=== PATIENT | male | born 1980 | race Hispanic/Latino ===

== ENCOUNTER 2016-09-07 23:05 | Inpatient (IN) | payer OTHER ==
[~2016-09-07] VITALS: Ht 170.2 cm; Wt 87.3 kg
--- NOTE | 2016-09-07 23:18 | NUR ---
PT TO ED S/P SI ATTEMPT AT 1330 TODAY. PT TOOK 10 MUSCLE RELAXERS, UNABLE TO IDENTIFY MEDICATION NAME, WITH ALCOHOL. PT NOW DENIES SI/HI. REPORTS LIGHTHEADNESS/DIZZINESS AND "HARD TO MOVE." PT CALM/COOPERATIVE IN TRIAGE.
--- NOTE | 2016-09-07 23:22 | NUR ---
PT TO BAUDILIO Dawson FROM TRIAGE SECURITY CALLED FOR MIGDALIA SHARMA EVALUATING AT PRESENT
--- NOTE | 2016-09-07 23:29 | ED AMS/SEIZURE/WEAK/DIZZY ---
See Addendum History of Present Illness General Chief Complaint: ETOH/Drug Related Complaint Stated Complaint: TOOK 10 MUSCLE RELAXERS "I DONT FEEL WELL" Source: patient Exam Limitations: no limitations Vital Signs & Intake/Output Vital Signs & Intake/Output Vital Signs Date Time Temp Pulse Resp B/P B/P Pulse O2 O2 Flow FiO2 Mean Ox Delivery Rate 09/08 2136 95.9 85 16 125/64 98 Room Air 09/08 1900 98.2 84 16 110/72 94 Room Air 09/08 1509 97.6 93 18 109/55 97 Room Air 09/08 0654 97.1 82 16 110/57 98 Room Air Room Air Allergies Coded Allergies: No Known Allergies (09/07/16) Reconcile Medications Multivitamin (Multivitamins) 1 EACH CAPSULE 1 CAP PO D SUPPLEMENT (Reported) Triage Note: PT TO ED S/P SI ATTEMPT AT 1330 TODAY. PT TOOK 10 MUSCLE RELAXERS, UNABLE TO IDENTIFY MEDICATION NAME, WITH ALCOHOL. PT NOW DENIES SI/HI. REPORTS LIGHTHEADNESS/DIZZINESS AND "HARD TO MOVE." PT CALM/COOPERATIVE IN TRIAGE. Triage Nurses Notes Reviewed? yes Onset: Gradual Duration: hour(s): Timing: recent history Injury Environment: home Severity: moderate Modifying Factors: Improves With: rest. Associated Symptoms: depression HPI: 35-year-old gentleman presents with depression. He states that he took 10 muscle relaxers at approximately 1:30 PM. He then drank alcohol. He then awoke and regretted what he did and states that, "I feel real funny, real weird." He states that he never has had seizures. He has never tried committing suicide before. He has never been admitted to a psychiatric facility. He states he has no other medical problems. (AZCHARY HINES,ROSAURA Spring) Past History Travel History Traveled to [place] past 21 day No Medical History Any Pertinent Medical History? see below for history Neurological: NONE EENT: NONE Cardiovascular: NONE Respiratory: NONE Gastrointestinal: NONE Hepatic: NONE Renal: NONE Musculoskeletal: NONE Psychiatric: NONE Endocrine: NONE Surgical History Surgical History: none Psychosocial History What is your primary language Bangladeshi Tobacco Use: Current Daily Use Daily Tobacco Use Amount/Type: => 5 Cigarettes daily ETOH Use: heavy use Illicit Drug Use: denies illicit drug use Family History Hx Contributory? No (ZACHARY ROSAURA HINES) Review of Systems Review of Systems Constitutional: Reports: no symptoms. EENTM: Reports: no symptoms. Respiratory: Reports: no symptoms. Cardiovascular: Reports: no symptoms. GI: Reports: no symptoms. Genitourinary: Reports: no symptoms. Musculoskeletal: Reports: no symptoms. Skin: Reports: no symptoms. Neurological/Psychological: Reports: no symptoms. Hematologic/Endocrine: Reports: no symptoms. Immunologic/Allergic: Reports: no symptoms. All Other Systems: Reviewed and Negative (ROSAURA SHARMA MD) Physical Exam Physical Exam General Appearance: well developed/nourished, no apparent distress Head: atraumatic, normal appearance Eyes: Bilateral: normal appearance. Ears, Nose, Throat: normal pharynx Neck: normal inspection, supple, full range of motion Respiratory: normal breath sounds, chest non-tender, no respiratory distress, quiet respiration, lungs clear Cardiovascular: regular rate/rhythm Gastrointestinal: normal bowel sounds, soft, non-tender, no organomegaly Back: normal inspection Extremities: normal range of motion Neurologic/Psych: no motor/sensory deficits, awake, alert, oriented x 3 Skin: intact, normal color, warm/dry Core Measures ACS in differential dx? No CVA/TIA Diagnosis: No Severe Sepsis Present: No Septic Shock Present: No (ROSAURA SHARMA MD) Progress Differential Diagnosis: alcohol intoxication, dehydration, drug intoxication, electrolyte imbalance Plan of Care: Orders Procedure Date/time Status Continuous Observation Monitor 09/08 1900 Active Continuous Observation Monitor 09/08 1500 Active Continuous Observation Monitor 09/08 1100 Active Continuous Observation Monitor 09/08 0700 Active 7:08 PM PATIENT SIGNED OUT TO ME BY DR BOWERS. PENDING CRISIS DISPO. (DALIA ROGERS MD) Initial ED EKG: none Hand-Off Endorsed To: PABLO BOWERS MD Endorsed Time: 07 Pending: consult (ROSAURA SHARMA MD) Hand-Off Endorsed To: DALIA ROGERS MD Endorsed Time: 1924 (PABLO BOWERS MD) Departure Departure Disposition: STILL A PATIENT Condition: Stable Clinical Impression Primary Impression: Depression Referrals: PATIENT HAS NO PRIMARY CARE DR (PCP/Family) Departure Forms: Customer Survey General Discharge Information (ROSAURA SHARMA MD) PA/CUTCH CLEANER Co-Sign Statement Statement: ED Attending supervision documentation- [] I saw and evaluated the patient. I have also reviewed all the pertinent lab results and diagnostic results. I agree with the findings and the plan of care as documented in the PA's/CUTCH CLEANER's documentation. [X] I have reviewed the ED Record and agree with the PA's/CUTCH CLEANER's documentation. [] Additions or exceptions (if any) to the PAs/CUTCH CLEANER's note and plan are summarized below: [] (DALIA ROGERS MD) 09/08/16 0049: Anion Gap 11, Estimated GFR > 60, BUN/Creatinine Ratio 16.7, Glucose 101 H, Calcium 9.3, Total Bilirubin 0.6, AST 23, ALT 32, Alkaline Phosphatase 68, Total Protein 7.5, Albumin 4.3, Globulin 3.2, Albumin/Globulin Ratio 1.3, CBC w Diff NO MAN DIFF REQ, RBC 4.97, MCV 86.2, MCH 29.3, RDW 13.3, MPV 8.1, Gran % 59.6, Lymphocytes % 30.4, Monocytes % 7.1, Eosinophils % 2.2, Basophils % 0.7, Absolute Granulocytes 3.5, Absolute Lymphocytes 1.8, Absolute Monocytes 0.4, Absolute Eosinophils 0.1, Absolute Basophils 0, PUBS MCHC 34.0, Salicylates < 1.0, Acetaminophen < 10.0 L, Serum Alcohol < 10.0 09/08/16 0026: Urine Opiates Screen < 100.00, Methadone Screen 47, Barbiturate Screen < 60, Ur Phencyclidine Scrn < 6.00, Amphetamines Screen < 100, U Benzodiazepines Scrn < 85, Urine Cocaine Screen < 50, Urine Cannabis Screen 14.70 7:08 PM PATIENT SIGNED OUT TO ME BY DR BOWERS. PENDING CRISIS DISPO. (DALIA ROGERS MD) Initial ED EKG: none Hand-Off Endorsed To: PABLO BOWERS MD Endorsed Time: 0700 Pending: consult (ROSAURA SHARMA MD) Hand-Off Endorsed To: DALIA ROGERS MD Endorsed Time: 1924 (PABLO BOWERS MD) Departure Departure Disposition: STILL A PATIENT Condition: Stable Clinical Impression Primary Impression: Depression Referrals: PATIENT HAS NO PRIMARY CARE DR (PCP/Family) Departure Forms: Customer Survey General Discharge Information (ROSAURA SHARMA MD)
--- NOTE | 2016-09-07 23:45 | NUR ---
PER MD SHARMA OK FOR PATIENT TO STAY IN OWN CLOTHES. PT STATED THAT HE IS NOT SUICIDAL AND WAS HERE TO MAKE SURE HE WAS OK. AWAITING FAMILY MEMBER ARRIVAL AT PRESENT. WILL CONTINUE TO MONITOR.
--- NOTE | 2016-09-08 00:11 | NUR ---
FAMILY MEMBER PRESENT, DR SHARMA SPEAKING TO PATIENT AND FAMILY MEMBER AT PRESENT.
--- NOTE | 2016-09-08 00:42 | NUR ---
PT CHANGED INTO BLUE PAPER SCRUBS PER ORDERS DR SHARMA. SECURITY PRESENT TO GO THROUGH BELONGINGS AND HAD PREVIOUSLY WANDED PATIENT. PT HAS 2 BELONGING BAGS PLACED IN CLOSET. PT ONLY VALUABLE IS HIS CELL PHONE WHICH HIS AUNT IS TAKING.
--- NOTE | 2016-09-08 00:44 | NUR ---
KEKE GOMEZ AT BEDSIDE FOR BLOOD DRAW AT PRESENT.
[2016-09-08] MEDS ORDERED: MULTIVITAMINS1 EAC8 PO (00:57)
[2016-09-08 00:58] LABS: ABSOLUTE BASOPHIL COUNT 0 /CUMM (0.0-0.2); ABSOLUTE EOSINOPHIL COUNT 0.1 /CUMM (0.0-0.7); ABSOLUTE GRANULOCYTE CT 3.5 /CUMM (1.4-6.5); ABSOLUTE LYMPH COUNT 1.8 /CUMM (1.2-3.4); ABSOLUTE MONOCYTE COUNT 0.4 /CUMM (0.10-0.60); BASOPHIL % 0.7 % (0.0-2.0); EOSINOPHIL % 2.2 % (0-5); GRANULOCYTE % 59.6 % (42.2-75.2); HEMATOCRIT 42.9 % (42-52); MEAN CORPUSCULAR HGB 29.3 PG (27.0-31.0); MEAN CORPUSCULAR VOLUME 86.2 FL (80.0-94.0); MEAN PLATELET VOLUME 8.1 FL (7.4-10.4); PLATELET COUNT 243 /CUMM (130-400); RBC DISTRIBUTION WIDTH 13.3 % (11.5-14.5); RED BLOOD CELL CT 4.97 /CUMM (4.70-6.10); WHITE BLOOD CELL COUNT 5.9 /CUMM (4.8-10.8)
--- NOTE | 2016-09-08 01:06 | NUR ---
PATIENT AUNT (ANASTASIA GRAYSON) LEAVING AT THIS TIME BUT CAN BE REACHED AT [phone] (CELL).
--- NOTE | 2016-09-08 02:04 | NUR ---
PT MOVED TO [facility] RM 13 SITTER AT DOOR
--- NOTE | 2016-09-08 06:54 | NUR ---
AWKENED FOR VS. CALM AND COOPERATIVE.
--- NOTE | 2016-09-08 07:40 | NUR ---
PT SLEEPING, SITTER AT DOORWAY.
--- NOTE | 2016-09-08 10:41 | ED PSY CRISIS COLLATERAL NOTE ---
Collateral Note Collateral Note Family/Inform/Marilee Contacts: This clinician called and spoke with aunt Ganesh Kim [phone]. The aunt stated the Pt walked to the hospital after drinking and taking pills. She reportsthe Pt has recently lost his relationship with his girlfriend. She reports he lives with a friend in the community. This clinician spoke with sister Carmencita Hoskins [phone]. The sister reports the Pt recently broke up with his girlfriend and feels sad.
--- NOTE | 2016-09-08 11:15 | NUR ---
ASSUMED CARE OF THIS PT FROM LOREN BARR. PT SLEEPING AT THIS TIME. RESPIRATIONS EQUAL AND UNLABORED AT 12/MINUTE. SITTER AT DOOR.
--- NOTE | 2016-09-08 12:17 | ED PSYCH CRISIS CONSULTATION ---
See Addendum Crisis Consult Basic Assessment Date of Consult: 09/08/16 Responsible Person/Accompanied By: self Insurance Authorization: Insurance #1: Insurance name: SELF-PAY Phone number: Policy number: Group number: Authorization number: ED Provider: Patient's ED Provider: ROSAURA SHARMA MD Primary Care Physician: Patient's PCP: PATIENT HAS NO PRIMARY CARE DR PCP's Phone Number: Current Psychiatrist: Dr. Sylwia Durham Chief Complaint: ETOH/Drug Related Complaint Patient's Quote: " I was feeling depressed, my girlfriend left me" Present Illness: Pt is a 35 year old who came to the emergency department for suicide ideation. The Pt reports taking 10 pills and drinking Alcohol. He then reports walking himself to the emergency room. He reports feeling sad and depressed. He reports his girlfriend ended the relationship and becoming sad and depressed. The Pt resports drinking EJ bekah and has been drinking for the past week to numb the pain. He reports no current or previous treatment, however the record reports the Pt being treated in July of 2010 for suicide ideation and drinking Alcohol at [facility]. Upon the interview the Pt was cooperative, depressed and sad regarding the recent loss of relationship, denied suicide or homcidal ideation, and denied auditory or visual hallcinations. The Pt reports a history of Alcohol Abuse and Cannabis Abuse but no current treatment. The Pt is currently residing with a friend in [place], [place] and employed with a [employer] company working on [employer] [facility]. Patient's Address: [address] [place] [address] Other Phone Number: Who Do You Live With? Friend Family/Informants Interviewed: Carmencita Hoskins sister [phone], and Ganesh Kim [phone] Allergies - Coded Allergies: No Known Allergies (09/07/16) Current Medications - Scheduled Medications Multivitamin (Multivitamins) 1 EACH CAPSULE 1 CAP PO D SUPPLEMENT (Reported) Entered as Reported by RACHEL BRAUN on 09/08/16 0057 Laboratory Results: Laboratory Tests 09/08/16 0049: Anion Gap 11, Estimated GFR > 60, BUN/Creatinine Ratio 16.7, Glucose 101 H, Calcium 9.3, Total Bilirubin 0.6, AST 23, ALT 32, Alkaline Phosphatase 68, Total Protein 7.5, Albumin 4.3, Globulin 3.2, Albumin/Globulin Ratio 1.3, CBC w Diff NO MAN DIFF REQ, RBC 4.97, MCV 86.2, MCH 29.3, RDW 13.3, MPV 8.1, Gran % 59.6, Lymphocytes % 30.4, Monocytes % 7.1, Eosinophils % 2.2, Basophils % 0.7, Absolute Granulocytes 3.5, Absolute Lymphocytes 1.8, Absolute Monocytes 0.4, Absolute Eosinophils 0.1, Absolute Basophils 0, PUBS MCHC 34.0, Salicylates < 1.0, Acetaminophen < 10.0 L, Serum Alcohol < 10.0 09/08/16 0026: Urine Opiates Screen < 100.00, Methadone Screen 47, Barbiturate Screen < 60, Ur Phencyclidine Scrn < 6.00, Amphetamines Screen < 100, U Benzodiazepines Scrn < 85, Urine Cocaine Screen < 50, Urine Cannabis Screen 14.70 Past History Past Medical History Neurological: NONE EENT: NONE Cardiovascular: NONE Respiratory: NONE Gastrointestinal: NONE Hepatic: NONE Renal: NONE Musculoskeletal: NONE Psychiatric: alcohol dependence, depression Endocrine: NONE Past Surgical History Surgical History: 1 Psychosocial History Strengths/Capabilities: seek treatment for his depresssion, [facility]. Psychiatric Treatment History Psych Treatment Psychiatric Treatment Yes Inpatient Treatment Yes Outpatient Treatment No Location of Treatment [facility] Reason for Treatment Suicide ideation Dates of Treatment July 2010 Response to Treatment poor Diagnosis by History: Depression Disorder NOS in 2010 Substance Use/Abuse History Drug Use/Abuse Substances Used/Abused Yes Substance Used/Abused Alcohol First Use 16 Last Used 09/07/2016 How much used/taken unkown (bekah) How often daily for 1 week For how long 1 week Route of use oral Substance Abuse Treatment Substance Abuse Treatment Past Substance Abuse [place] No Inpatient Treatment No Outpatient Treatment No Location of Treatment none Reason for Treatment none Dates of Treatment none Response to Treatment none Comments: none Current Mental Status Mental Status Orientation: Person, Place, Situation Affect: Depressed, Sad Speech: WNL Neuro-vegetative: Appetite Decreased Appearance Appearance- Dress/Hygiene: Dressed in hospital clothing Behaviors Thought Process: WNL Thought Content: WNL Memory: WNL Insight: Poor SI/HI Risk Assessment Past Suicidal Ideation/Attempts Yes Current Suicidal Ideation/Att Yes Past Homicidal Ideation/Att: No Current Homicidal Ideation/Attempts No Degree of Intent: Thoughts/No Intent Danger To: Self Gravely Disabled: Lack of Insight, Poor Impulse Control, Poor Judgment Risk Factors: history of suicide atmpts, SA/MH hospitalized, substance abuse, isolate/no social support, poor impulse control, male, limited support Lethality Ratin PTSD Checklist PTSD Score: PTSD Score: Response Value Disturbing memories,thoughts,images of stressful experience? Not at all 1 Disturbing dreams of stressful experience from past? Not at all 1 Suddenly acting/feeling as if reliving stressful experience? Not at all 1 Total 3 PTSD Done? patient declined ED Management Sitter: Yes Restraints: No DSM5/PS Stressors/Medical Prob Diagnosis' (DSM 5, Stressors, Medical): Major Depressive Unspecified, F32.9 Current GAF: 25 Comments: Pt presented to the emergency room with suicide ideation, Pt took 10 pills and drinking Bekah after recent loss of relationship with his girlfriend. Pt depressesd and sad, consulted with Dr Sylwia Durham Pt to admitted inpatient psychiatric treatment. Departure Disposition Psych Medical Clearance Date: 09/08/16 Medically Cleared at: 0940 Time Started: 0940 Time Ended: 1040 Psychiatrist Consulted: Dr. Sylwia Durham Date Disposition Established: 09/08/16 Time Disposition Established: 1200 Plan for Disposition - Modality: Bed Search Rationale for Disposition: Pt presented to the emergency room with suicide ideation, Pt took 10 pills and drinking Bekah after recent loss of relationship with his girlfriend. Pt depressesd and sad, consulted with Dr Syliwa Durham Pt to admitted inpatient psychiatric treatment. Type of IP Admission: PEC Referrals PATIENT HAS NO PRIMARY CARE DR (PCP/Family)
--- NOTE | 2016-09-08 12:31 | NUR ---
PT AMBULATORY TO TELEPHONE. PT CALM AND COOPERATIVE. SITTER AT DOOR.
--- NOTE | 2016-09-08 12:57 | NUR ---
PT'S AUNT CALLED ASKING FOR UPDATE ON PT. TRANSFERRED CALL TO CRISIS.
--- NOTE | 2016-09-08 14:25 | NUR ---
PT REQUESTING LAB RESULTS. THIS RN PRINTED THEM. PT HAS FAMILY VISITING AND THEY WERE ASKING FOR AN UPDATE ON PT'S STATUS. CRISIS MADE AWARE. PT CALM AND COOPERATIVE AT THIS TIME.
--- NOTE | 2016-09-08 15:36 | NUR ---
PT'S AUNT GAVE PT'S 2 KEYS AND CAR FOB, BLUE IPHONE AND WALLET TO THIS RN, WHO PLACED IN VALUABLES BAG WITH RODOLFO BRAMBILA. PT REFUSED TO SIGN VALUABLES FORM, SAYING HE WANTS TO SIGN HIMSELF OUT BECAUSE HE IS "NOT SUICIDAL, HAS NO INSURANCE AND HAS TO GO TO WORK." ADVISED PT THAT THE MD HAS PLACED HIM ON A PAPER SAYING THAT HE IS A DANGER TO HIMSELF OR OTHERS.
--- NOTE | 2016-09-08 17:39 | NUR ---
PT'S SISTER AT BEDSIDE. PT CALM AND COOPERATIVE. SITTER AT DOOR.
--- NOTE | 2016-09-08 18:50 | NUR ---
PT LYING ON BED IN ROOM 13 WATCHING TV. PT CALM AND COOPERATIVE AT THIS TIME. SITTER AT DOOR.
--- NOTE | 2016-09-08 20:56 | NUR ---
PT ASLEEP ON HIS RIGHT SIDE ON BED IN ROOM 13. RESPIRATIONS EQUAL AND UNLABORED. SITTER AT DOOR.
--- NOTE | 2016-09-08 22:45 | NUR ---
PT ASLEEP ON BED IN ROOM 13. SITTER AT DOOR.
--- NOTE | 2016-09-09 00:18 | NUR ---
SLEEPING ON BED. SITTER IN ATTENDANCE. RR WNL.
--- NOTE | 2016-09-09 02:36 | NUR ---
SLEEPING ON BED. RR WNL. SITTER IN ATTENDANCE.
--- NOTE | 2016-09-09 04:20 | NUR ---
CONTINUES TO SLEEP
--- NOTE | 2016-09-09 06:37 | NUR ---
AWAKE FOR V/S OFFERS NO COMPLAINTS
--- NOTE | 2016-09-09 07:20 | NUR ---
ASSUMED CARE, SLEEPING, SITTER IN ATTENDANCE.
--- NOTE | 2016-09-09 09:05 | NUR ---
CRISIS IN WITH PT FOR EVAL
--- NOTE | 2016-09-09 09:27 | ED PSYCH CRISIS CONSULTATION ---
See Addendum Crisis Consult Basic Assessment Date of Consult: 09/09/16 Responsible Person/Accompanied By: Self Insurance Authorization: Insurance #1: Insurance name: SELF-PAY Phone number: Policy number: Group number: Authorization number: ED Provider: Patient's ED Provider: ROSAURA SHARMA MD Primary Care Physician: Patient's PCP: PATIENT HAS NO PRIMARY CARE DR PCP's Phone Number: Chief Complaint: ETOH/Drug Related Complaint Present Illness: Pt. was re-evaled by JEAN on the morning of 09/09/16. Pt. was articulate but verbally upset by having to stay in the hospital. He stated "why would I come in here if I was suicidal, I came to make sure I was ok after doing something stupid". Pt. requested to go home because he "has to go to work or he is going to lose his job" and he stated "I can't stay here I don't have insurance". After pt. was reassured that a note would be provided to his job and that he would be signed up for state insurance and would not receive a bill for the hospitalization, pt. continued to demand to leave and to "sign out". Pt. reported that he had no previous history with suicidal ideation or attempts and stated he "had been drinking, took some muscle relaxers, fell asleep, woke up and walked himself to the hospital because he realized he had done something stupid and wanted to make sure he was ok". Pt. continued to be upset that he had to stay here and requested to talk to the psychiatrist. This message was passed on to the psychiatrist who will come to speak with him later today. Patient's Address: [address] [place] [address] Other Phone Number: Who Do You Live With? Friend Family/Informants Interviewed: see initial assessment and collateral note. Allergies - Coded Allergies: No Known Allergies (09/07/16) Current Medications - Scheduled Medications Multivitamin (Multivitamins) 1 EACH CAPSULE 1 CAP PO D SUPPLEMENT (Reported) Entered as Reported by RACHEL BRAUN on 09/08/16 0057 Past History Past Medical History Neurological: NONE EENT: NONE Cardiovascular: NONE Respiratory: NONE Gastrointestinal: NONE Hepatic: NONE Renal: NONE Musculoskeletal: NONE Psychiatric: alcohol dependence, depression Endocrine: NONE Past Surgical History Surgical History: 1 Psychosocial History Strengths/Capabilities: seek treatment for his depresssion, [facility]. Psychiatric Treatment History Psych Treatment Psychiatric Treatment Yes Inpatient Treatment Yes Outpatient Treatment No Location of Treatment [facility] Reason for Treatment Suicide ideation Dates of Treatment July 2010 Response to Treatment poor Diagnosis by History: Depression Disorder NOS in 2010 Substance Use/Abuse History Drug Use/Abuse Substances Used/Abused Yes Substance Used/Abused Alcohol First Use 16 Last Used 09/07/2016 How much used/taken unkown (bekah) How often daily for 1 week For how long 1 week Route of use oral Substance Abuse Treatment Substance Abuse Treatment Past Substance Abuse [place] No Inpatient Treatment No Outpatient Treatment No Location of Treatment none Reason for Treatment none Dates of Treatment none Response to Treatment none Current Mental Status Mental Status Orientation: Person, Place, Situation Affect: Angry, Appropriate Speech: WNL Neuro-vegetative: WNL Appearance Appearance- Dress/Hygiene: well groomed, buzz cut hair in hospital scrubs. Behaviors Thought Process: WNL Thought Content: WNL Memory: WNL Insight: Poor SI/HI Risk Assessment Past Suicidal Ideation/Attempts Yes Current Suicidal Ideation/Att No Past Homicidal Ideation/Att: No Current Homicidal Ideation/Attempts No Degree of Intent: Self Destructive/No Danger To: Self Gravely Disabled: Lack of Insight, Poor Impulse Control, Poor Judgment Risk Factors: access to lethal means, high anxiety/distress, substance abuse, poor impulse control, male Lethality Ratin ED Management Sitter: Yes Restraints: No DSM5/PS Stressors/Medical Prob Diagnosis' (DSM 5, Stressors, Medical): Major Depressive Unspecified, F32.9 Current GAF: 25 Comments: Pt presented to the emergency room with suicide ideation, Pt took 10 pills and drinking Bekah after recent loss of relationship with his girlfriend. Pt depressesd and sad, consulted with Dr Sylwia Durham Pt to admitted inpatient psychiatric treatment. Departure Disposition Psych Medical Clearance Date: 09/09/16 Medically Cleared at: 0900 Time Started: 0900 Time Ended: 909 Psychiatrist Consulted: Sylwia Durham MD Date Disposition Established: 09/09/16 Time Disposition Established: 914 Plan for Disposition - Modality: Inpatient Psychiatry Facility: Bed search Rationale for Disposition: Pt. made an attempt as suicide with drinking and 10 pills. Pt. to be admitted to an inpatient psychiatric unit. Bed search is in progress. Type of IP Admission: PEC Additional Instructions: pt. continues to demand to be released and his anger about being hospitalized is increasing. pt. should continue to be reassured about note to his job and state insurance coverage. Referrals PATIENT HAS NO PRIMARY CARE DR (PCP/Family)
--- NOTE | 2016-09-09 10:25 | NUR ---
PT'S SISTER HERE FOR VISIT VISIT APPROVED PER PT
--- NOTE | 2016-09-09 12:10 | NUR ---
PT ADVISED HE WILL BE RE-EVALUATED TODAY BY DR HEMPHILL. PT ADAMENTLY DENIES SI, STATES HE WILL SEEK HELP FOR HIS DRINKING AND "LOVES HIS LIFE". PT IS ALSO WORRIED ABOUT GETTING BACK TO WORK AND NOT HAVING INSURANCE. PT CALM AND COOPERATIVE. SITTER AT DOOR.
--- NOTE | 2016-09-09 13:28 | ED PSYCHIATRIST/APRN CONSULT ---
Psychiatrist/MULTIPLE SCLEROSIS NURSE ED Consult Assessment and Plan: Pt seen as f/u. Pt admits taking overdose with intent to . Notes worsening depression though "its all gone now." Wants to be discharged as feels no longer has any issues. MSE Appears as stated age. Cooperative behavior but guarded. Nl speech rate, increased volume and prosody. No psychomotor retardation or agitation. Mood better, I want to go Affect very irritable, depressed, constricted, appropriate , tearful, non-liable. Linear and goal directed thought process. Denies SI or HI. Does not appear to be responding to internal stimuli. Denies AVHs, paranoia, or delusions. I/J: limited A/P: As patient did take overdose with intent to there is indication for acute psychiatric stablization. Pt on PEC Awaiting inpatient placement.
--- NOTE | 2016-09-09 13:48 | ED PSY CRISIS COLLATERAL NOTE ---
Collateral Note Collateral Note Family/Inform/Marilee Contacts: Dr. Durham re-evaluated pt and determined he continues to require inpt psych tx and remains on a PEC. She asked that pt's Aunt be notified as pt requested.This clinician called Aunt Ganesh Kim and explained the need for inpt psych tx due to concern that pt is a risk to himself due to his OD. She did not agree with the decision and stated she plans to get other family involved in this as they do not agree that pt should be on a PEC and want him discharged. "He is going to loose his job because of this." Explained to her that the nurses are currently charging his phone so that we can get his jobs number out of it and call them and tell them he is in the hospital and that his job will not be told why he is in the hospital. (WILLIAM SNIDER,KIMBERLEE) Collateral Note Family/Inform/Marilee Contacts: This copywriter called patient's employer at at the request of the patient. Patient requested employer be informed he is at the hospital and will be admitted inpatient likely for several days. Patient's employer received information. (ASHLEIGH SNIDER,[place])
--- NOTE | 2016-09-09 14:15 | NUR ---
PT CALM AND COOPERATIVE IN ROOM 13. PT REQUESTING NICOTINE PATCH. WILL MAKE DR BOWERS AWARE. SITTER AT DOOR.
--- NOTE | 2016-09-09 16:32 | NUR ---
NICOTINE PATCH 21MG APPLIED TO PT'S RIGHT UPPER ARM. PT CALM AND COOPERATIVE SITTER AT DOOR
--- NOTE | 2016-09-09 17:40 | NUR ---
PT AMBULATORY TO TELEPHONE. PT REMAINS CALM AND COOPERATIVE. SITTER AT DOOR. PT REMAINS A BED SEARCH.
--- NOTE | 2016-09-09 19:04 | NUR ---
PT REMAINS CALM AND COOPERATIVE IN ROOM 13. SITTER AT DOOR.
--- NOTE | 2016-09-09 20:33 | NUR ---
PT REMAINS CALM AND COOPERATIVE IN ROOM 13. SITTER AT DOOR
--- NOTE | 2016-09-09 21:51 | NUR ---
PT CALM AND COOPERATIVE AT THIS TIME. PT RESTING IN ROOM 13 WITH TV ON. SITTER AT DOOR.
--- NOTE | 2016-09-09 23:15 | NUR ---
PATIENT SLEEPING AT THIS TIME W/ REGULAR RESPIRATIONS NOTED. SITTER REMAINS W/ PATIENT.
--- NOTE | 2016-09-10 01:22 | NUR ---
PATIENT SLEEPING AT THIS TIME W/ REGULAR RESPIRATIONS NOTED, LIGHTS DIMMED IN ROOM. SITTER REMAINS AT BEDSIDE. PATIENT NOTED TO BE TURNING AND REPOSITIONING SELF W/O DIFFICULTY.
--- NOTE | 2016-09-10 03:37 | NUR ---
PATIENT CONTINUES TO SLEEP AT THIS TIME W/ REGULAR RESPIRATIONS NOTED. SITTER REMAINS W/ PATIENT. LIGHTS DIMMED.
--- NOTE | 2016-09-10 05:59 | NUR ---
PATIENT CONTINUES TO SLEEP AT THIS TIME W/ REGULAR RESPIRATIONS NOTED. AWOKE PATIENT TO OBTAIN VS. PATIENT COOPERATIVE, CALM. LIGHTS DIMMED. SITTER REMAINS W/ PATIENT.
--- NOTE | 2016-09-10 07:17 | NUR ---
ASSUMED CARE AT THIS TIME, PT AWAKE AND ALERT/ CALM AND COPERATIVE, DENIES PAIN. PT AWARE THAT CRISIS CONTINUES TO WORK ON FINDING HIM A BED. PT PROVIDED WITH FOOD TRAY AND ASKS FOR LIGHTS TO REMAIN OFF DUE TO HE IS TIRED
--- NOTE | 2016-09-10 09:13 | NUR ---
PT REMAINS CALM AND COPERATIVE AT THIS TIME
--- NOTE | 2016-09-10 10:06 | NUR ---
PT REMAINS CALM AND COPERATIVE AT THIS TIME
--- NOTE | 2016-09-10 10:46 | NUR ---
PT AWAKE AND ALERT , CALM COPERATIVE AT THIS TIME, PT ON PHONE SPEAKING WITH HIS SISTER.
--- NOTE | 2016-09-10 12:59 | NUR ---
PT SEEN IN ROOM. CALM, COOPERATIVE AND APPROPRIATE TO SITUATION.
--- NOTE | 2016-09-10 12:59 | NUR ---
PT SEEN IN ROOM. CALM, COOPERATIVE AND APPRIOPRIATE TO SITUATION.
--- NOTE | 2016-09-10 15:55 | IP CRISIS DIAG ASSESS PSYCH ---
See Addendum Diagnostic Assessment Basic Assessment Insurance Authorization: Insurance #1: Insurance name: Temporary from [facility] Phone number: Policy number: [id number] Group number: Authorization number: [id number]; [id number] Primary Care Physician: Patient's PCP: PATIENT HAS NO PRIMARY CARE DR PCP's Phone Number: Patient's Quote: " I was feeling depressed, my girlfriend left me" Present Illness: Pt is a 35 year old who came to the emergency department for suicide ideation. The Pt reports taking 10 pills and drinking Alcohol. He then reports walking himself to the emergency room. He reports feeling sad and depressed. He reports his girlfriend ended the relationship and becoming sad and depressed. The Pt resports drinking EJ kristi and has been drinking for the past week to numb the pain. He reports no current or previous treatment, however the record reports the Pt being treated in July of 2010 for suicide ideation and drinking Alcohol at [facility]. Upon the interview the Pt was cooperative, depressed and sad regarding the recent loss of relationship, denied suicide or homcidal ideation, and denied auditory or visual hallcinations. The Pt reports a history of Alcohol Abuse and Cannabis Abuse but no current treatment. The Pt is currently residing with a friend in [place], [place] and employed with a [employer] working on [employer] systems. Patient's Address: [address] [place] [address] Other Phone Number: Who Do You Live With? Friend Feel Safe Where You Live? Yes Feel Safe in Your Relationship Yes Marital Status: Do You Have Children? No Primary Language? Mosotho Language(s) Spoken At Home: Chinese, Mosotho Family/Informants Interviewed: see initial assessment and collateral note. Allergies - Coded Allergies: No Known Allergies (09/07/16) Current Medications - Scheduled Medications Multivitamin (Multivitamins) 1 EACH CAPSULE 1 CAP PO D SUPPLEMENT (Reported) Entered as Reported by RACHEL BRAUN on 09/08/16 0057 Lab Results: Laboratory Tests 09/08 09/08 0049 0026 Chemistry Sodium (137 - 145 mmol/L) 140 Potassium (3.5 - 5.1 mmol/L) 4.4 Chloride (98 - 107 mmol/L) 105 Carbon Dioxide (22 - 30 mmol/L) 24 Anion Gap (5 - 16) 11 BUN (9 - 20 mg/dL) 15 Creatinine (0.7 - 1.2 mg/dL) 0.9 Estimated GFR (>60 ml/min) > 60 BUN/Creatinine Ratio (7 - 25 %) 16.7 Glucose (65 - 99 mg/dL) 101 H Calcium (8.4 - 10.2 mg/dL) 9.3 Total Bilirubin (0.2 - 1.3 mg/dL) 0.6 AST (17 - 59 U/L) 23 ALT (21 - 72 U/L) 32 Alkaline Phosphatase (< 127 U/L) 68 Total Protein (6.3 - 8.2 g/dL) 7.5 Albumin (3.5 - 5.0 g/dL) 4.3 Globulin (1.9 - 4.2 gm/dL) 3.2 Albumin/Globulin Ratio (1.1 - 2.2 %) 1.3 Hematology CBC w Diff NO MAN DIFF REQ WBC (4.8 - 10.8 /CUMM) 5.9 RBC (4.70 - 6.10 /CUMM) 4.97 Hgb (14.0 - 18.0 G/DL) 14.6 Hct (42 - 52 %) 42.9 MCV (80.0 - 94.0 FL) 86.2 MCH (27.0 - 31.0 PG) 29.3 RDW (11.5 - 14.5 %) 13.3 Plt Count (130 - 400 /CUMM) 243 MPV (7.4 - 10.4 FL) 8.1 Gran % (42.2 - 75.2 %) 59.6 Lymphocytes % (20.5 - 51.1 %) 30.4 Monocytes % (1.7 - 9.3 %) 7.1 Eosinophils % (0 - 5 %) 2.2 Basophils % (0.0 - 2.0 %) 0.7 Absolute Granulocytes (1.4 - 6.5 /CUMM) 3.5 Absolute Lymphocytes (1.2 - 3.4 /CUMM) 1.8 Absolute Monocytes (0.10 - 0.60 /CUMM) 0.4 Absolute Eosinophils (0.0 - 0.7 /CUMM) 0.1 Absolute Basophils (0.0 - 0.2 /CUMM) 0 PUBS MCHC (33.0 - 37.0 G/DL) 34.0 Toxicology Salicylates (0 - 20.0 mg/dL) < 1.0 Urine Opiates Screen (>2000 NG/ML) < 100.00 Methadone Screen (>300 NG/ML) 47 Acetaminophen (10.0 - 30.0 ug/mL) < 10.0 L Barbiturate Screen (>200 NG/ML) < 60 Ur Phencyclidine Scrn (>25 NG/ML) < 6.00 Amphetamines Screen (>1000 NG/ML) < 100 U Benzodiazepines Scrn (>200 NG/ML) < 85 Urine Cocaine Screen (>300 NG/ML) < 50 Urine Cannabis Screen (>50 NG/ML) 14.70 Serum Alcohol (<10 MG/DL) < 10.0 Toxicology Screen Completed? Yes Results: negative Past History Past Medical History Medical History: None/Denies Past Surgical History Surgical History none (Denies) Abuse/Trauma History Trauma History/Current Trauma: Denies Legal History Current Legal Status: none Have you ever been arrested? Yes Number of Arrests: [address] Dates: None Director Compensation NA Psychosocial History Strengths/Capabilities: seek treatment for his depresssion, came to the emergency room. Physical Limitations (Interventions): None known Psychiatric Treatment History Psych Treatment Psychiatric Treatment Yes Inpatient Treatment Yes Outpatient Treatment Yes Location of Treatment [facility] OPS Reason for Treatment Suicide ideation, depression Dates of Treatment July 2010 Response to Treatment Improved, but limited followup by patient Diagnosis by History: Depression Disorder NOS in 2010 Risk Factors: access to lethal means, high anxiety/distress, substance abuse, poor impulse control, male Substance Use/Abuse History Drug Use/Abuse minimum 12mo Hx Substances Used/Abused Yes Substance Used/Abused Alcohol First Use 16 Last Used 09/07/2016 How much used/taken 1/2 pint kristi and one 22 oz [place] light How often daily for 1 week For how long 1 week Route of use oral Substance Abuse Treatment Substance Abuse Treatment Past Substance Abuse TX Yes Inpatient Treatment Yes Outpatient Treatment No Location of Treatment [facility] Reason for Treatment Alcohol and cannabis use disorders Dates of Treatment July 2010 Response to Treatment Improved Sexual History Sexually Active Yes # of partners 1 Sexual Orientation Heterosexual Use of Protection Yes Sometimes Education History Highest Level of Education: some college Preferred Learning Style: experiential Current Mental Status Mental Status Orientation: Person, Place, Situation Affect: Appropriate, Constricted, Sad Speech: WNL Neuro-vegetative: WNL Appearance Appearance- Dress/Hygiene: well groomed, buzz cut hair in hospital scrubs. Behaviors Thought Process: WNL Thought Content: WNL Memory: WNL Insight: Poor SI/HI Risk Assessment - Minimum 6mo History- Past Suicidal Ideation/Attempts Yes Current Suicidal Ideation/Att No Past Homicidal Ideation/Att: No Current Homicidal Ideation/Attempts No Degree of Intent: Self Destructive/No Danger To: Self Gravely Disabled: Lack of Insight, Poor Impulse Control, Poor Judgment Risk Factors: access to lethal means, high anxiety/distress, substance abuse, poor impulse control, male Lethality Ratin Needs/Init TX Plan/Goals: TBD AUDIT-C Questionnaire: AUDIT-C Questionnaire: Response Value ETOH use in the past year 2-4 times/week 3 # drinks typical/day 5 or 6 2 6 or > drinks per occasion Weekly 3 Total 8 DSM5/PS Stressors/Medical Prob Diagnosis' (DSM 5, Stressors, Medical): Major Depressive Unspecified, F32.9 Current GAF: 25 Comments: Pt presented to the emergency room with suicide ideation, Pt took 10 pills and drinking Kristi after recent loss of relationship with his girlfriend. Pt depressesd and sad, consulted with Dr Sylwia Durham Pt to admitted inpatient psychiatric treatment. Re-evaluate 09/10/16; denies SI. Dr. Whitley orders inpatient psychiatry.
--- NOTE | 2016-09-10 15:55 | NUR ---
PT IN ROOM WATCHING TELEVISION. DENIES NEGATIVE SX OR DETERIORATION OF MOOD.
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
--- NOTE | 2016-09-10 19:13 | NUR ---
REPORT CALLED TO LOREN RICO IN [facility]. VSS. [facility] CALLED.
--- NOTE | 2016-09-10 19:21 | NUR ---
1 VALUABLES BAG REMOVED FROM ED SAFE, 2 BELONGINGS BAGS REMOVED FROM CLOSET, GIVEN TO TRANSPORT. PEC AND PAPERWORK GIVEN TO TRANSPORT
[2016-09-10 19:24] VITALS: BP 145/88
--- NOTE | 2016-09-10 22:05 | Admission Certification ---
Admission Certification Certification Statement - As attending physician, I certify that at the time of - admission, based on clinical presentation, severity of - symptoms, need for further diagnostic testing and - therapeutic interventions, and risk of adverse outcomes - without in-hospital treatment, in my clinical assessment, - this patient requires an acute hospital stay for a minimum - of two nights or longer. I have also considered psychsocial - factors such as support system, advanced age, financial - issues, cognitive issues, and failed out-patient treatments, - past re-admission history, safety of patient, and lack of - compliance as applicable. Specific rationale supporting this admission is: Depression, suicidal ideation.
--- NOTE | 2016-09-10 22:07 | History & Physical ---
General Information and HPI MD Statement: I have seen and personally examined KRISTOFER LUND and documented this H&P. The patient is a 35 year old M who presented with a patient stated chief complaint of [Depressed, SI]. Source of Information: patient Exam Limitations: no limitations History of Present Illness: 35 yo M is admitted to Inpatient Psychiatry for depression and suicidal ideation. He reports recent breakup with girlfriend which resulted in him binging on alcohol and taking about 9-10 OTC muscle relaxant pills. He has been sad and depressed over the past week. He then reports walking himself to the emergency room. He reports feeling sad and depressed. He fell asleep, woke up and walked himself to the ER on SaturdaySeptember 07. c/o retching but no vomiting. He came to get himself checked as he felt he did something stupid. He currently denies chest pain, dyspnea, nausea, vomiting, abdominal pain, diarrhea or urinary symptoms. Allergies/Medications Allergies: Coded Allergies: No Known Allergies (09/07/16) Home Med list Multivitamin (Multivitamins) 1 EACH CAPSULE 1 CAP PO D SUPPLEMENT (Reported) Compliance With Home Meds: GOOD Past History Travel History Traveled to [place] past 21 day No Medical History Neurological: NONE EENT: NONE Cardiovascular: NONE Respiratory: NONE Gastrointestinal: NONE Hepatic: NONE Renal: NONE Musculoskeletal: NONE Psychiatric: alcohol dependence, depression, substance abuse (previous 'weed' use) Endocrine: NONE Blood Disorders: NONE Cancer(s): NONE LEGAL ARBITRATOR/Reproductive: NONE History of MRSA: No History of VRE: No History of CDIFF: No Isolation History: Standard Surgical History Surgical History: none Past Family/Social History Family History Relations & Conditions if any MOTHER (Diabetes). FATHER (Diabetes). Paternal family (Hypertension.). Psychosocial History Where do you live? Home Who Do You Live With? self Services at Home: None Primary Language: Danish Smoking Status: Current Everyday Smoker ETOH Use: heavy use (over past week) Illicit Drug Use: Previous h/o weed use. Functional Ability ADLs Independent: dressing, eating, toileting, bathing. Ambulation: independent IADLs Independent: shopping, telephone, transportation, medication admin. Employment History Employment Employed Profession/Employer Current job just started. Previous job for >5 years Review of Systems Review of Systems Constitutional: Denies: chills, diaphoresis, fever, weakness. EENTM: Reports: no symptoms. Cardiovascular: Denies: chest pain, orthopena, palpitations, syncope. Respiratory: Denies: cough, short of breath, sputum production. GI: Reports: nausea. Denies: abdominal pain, constipation, diarrhea, vomiting. Genitourinary: Denies: dysuria, frequency, hematuria. Musculoskeletal: Denies: back pain, muscle pain, muscle stiffness. Skin: Reports: no symptoms. Neurological/Psychological: Reports: see HPI. All Other Systems: Reviewed and Negative Exam & Diagnostic Data Last 24 Hrs of Vital Signs/I&O Vital Signs Date Time Temp Pulse Resp B/P B/P Pulse O2 O2 Flow FiO2 Mean Ox Delivery Rate 09/10 1707 97.1 91 16 120/85 98 Room Air 09/10 1200 96.5 88 18 132/84 99 Room Air 09/10 0930 97.8 96 18 122/86 08 0716 97.0 86 16 103/56 98 Room Air 09/10 0604 96.7 101 20 121/69 98 /08 0415 98.6 73 20 120/51 96 /08 0144 97.8 78 20 94/52 98 Room Air Physical Exam General Appearance Alert, Oriented X3, Cooperative, No Acute Distress Skin No Rashes, No Breakdown HEENT Atraumatic, PERRLA, EOMI Neck Supple Cardiovascular Regular Rate, Normal S1, Normal S2, No Murmurs Lungs Clear to Auscultation, Normal Air Movement Abdomen Normal Bowel Sounds, Soft, No Tenderness Neurological Exam Findings: Normal Gait, Normal Speech, Strength at 5/5 X4 Ext, Normal Tone, Sensation Intact, Reflexes 2+ Cranial Nerves II through XII: Grossly intact Extremities No Edema, Normal Pulses, No Tenderness/Swelling Vascular Normal Pulses, Pulses Symmetrical Last 24 Hrs of Labs/Nelson: Laboratory Tests 09/08 09/08 0049 0026 Chemistry Sodium (137 - 145 mmol/L) 140 Potassium (3.5 - 5.1 mmol/L) 4.4 Chloride (98 - 107 mmol/L) 105 Carbon Dioxide (22 - 30 mmol/L) 24 Anion Gap (5 - 16) 11 BUN (9 - 20 mg/dL) 15 Creatinine (0.7 - 1.2 mg/dL) 0.9 Estimated GFR (>60 ml/min) > 60 BUN/Creatinine Ratio (7 - 25 %) 16.7 Glucose (65 - 99 mg/dL) 101 H Calcium (8.4 - 10.2 mg/dL) 9.3 Total Bilirubin (0.2 - 1.3 mg/dL) 0.6 AST (17 - 59 U/L) 23 ALT (21 - 72 U/L) 32 Alkaline Phosphatase (< 127 U/L) 68 Total Protein (6.3 - 8.2 g/dL) 7.5 Albumin (3.5 - 5.0 g/dL) 4.3 Globulin (1.9 - 4.2 gm/dL) 3.2 Albumin/Globulin Ratio (1.1 - 2.2 %) 1.3 Hematology CBC w Diff NO MAN DIFF REQ WBC (4.8 - 10.8 /CUMM) 5.9 RBC (4.70 - 6.10 /CUMM) 4.97 Hgb (14.0 - 18.0 G/DL) 14.6 Hct (42 - 52 %) 42.9 MCV (80.0 - 94.0 FL) 86.2 MCH (27.0 - 31.0 PG) 29.3 RDW (11.5 - 14.5 %) 13.3 Plt Count (130 - 400 /CUMM) 243 MPV (7.4 - 10.4 FL) 8.1 Gran % (42.2 - 75.2 %) 59.6 Lymphocytes % (20.5 - 51.1 %) 30.4 Monocytes % (1.7 - 9.3 %) 7.1 Eosinophils % (0 - 5 %) 2.2 Basophils % (0.0 - 2.0 %) 0.7 Absolute Granulocytes (1.4 - 6.5 /CUMM) 3.5 Absolute Lymphocytes (1.2 - 3.4 /CUMM) 1.8 Absolute Monocytes (0.10 - 0.60 /CUMM) 0.4 Absolute Eosinophils (0.0 - 0.7 /CUMM) 0.1 Absolute Basophils (0.0 - 0.2 /CUMM) 0 PUBS MCHC (33.0 - 37.0 G/DL) 34.0 Toxicology Salicylates (0 - 20.0 mg/dL) < 1.0 Urine Opiates Screen (>2000 NG/ML) < 100.00 Methadone Screen (>300 NG/ML) 47 Acetaminophen (10.0 - 30.0 ug/mL) < 10.0 L Barbiturate Screen (>200 NG/ML) < 60 Ur Phencyclidine Scrn (>25 NG/ML) < 6.00 Amphetamines Screen (>1000 NG/ML) < 100 U Benzodiazepines Scrn (>200 NG/ML) < 85 Urine Cocaine Screen (>300 NG/ML) < 50 Urine Cannabis Screen (>50 NG/ML) 14.70 Serum Alcohol (<10 MG/DL) < 10.0 Diagnostic Data EKG Results -- CXR Results -- Assessment/Plan Assessment: 35 yo male admitted to Inpatient Psychiatry for depression and suicidal ideation. Continue management per Psych team. Smoking cessation counseling done. Nicotine patch offered. He has no active medical issues. As Ranked By This Provider Problem List: 1. Depression 2. Smoking 3. Suicidal ideation Miscellaneous Miscellaneous Documentation Attending Case Discussed With: Ricky Lund M.D. Primary Care Physician: PATIENT HAS NO PRIMARY CARE DR Patient sees these Specialists -- Level of Patient Care: HASEEB Woosdon Attending MD Review Statement Attending Statement Attending MD Statement: examined this patient, discuss w/resident/PA/STOCK WORKER AND DELIVERER
--- NOTE | 2016-09-10 22:44 | NUR ---
Pt mood is stable affect is in full range, compliant and cooperative with the staff. Vital signs are stable appetite is good. Will conitnue to monitor the pt overnight.
--- NOTE | 2016-09-10 23:23 | NUR ---
PT ADMITTED TO [facility] FOR DEPRESSION WITH SI. PT CAME TO [facility] ON 09/07 AFTER BECOMING INTOXICATED AND INTENTIONALLY TAKING APPROX. 10 MUSCLE RELAXERS AFTER A BREAK UP WITH GIRLFRIEND. DURING INTERVIEW, PT DENIED SI/THOUGHTS OF SELF HARM AND ALSO SAID HE WAS NOT DEPRESSED. "MY PROBLEM IS DRINKING." PT. REPORTED HE ACTED IMPULSIVELY "BECAUSE I WAS DRUNK." PT DENIED ANXIETY, PARANOID THOUGHTS, AND ALL HALLUCINATIONS. NO SOMATIC C/O. VITAL SIGNS STABLE.
--- NOTE | 2016-09-11 05:17 | NUR ---
PATIENT SLEPT ALL NIGHT.
[2016-09-11 08:03] VITALS: BP 123/70
--- NOTE | 2016-09-11 12:25 | NUR ---
PT STATED HIS GOAL TODAY WAS TO ATTEND GROUPS. HE IS ABLE TO RECOGNIZE HIS BEHAVIOR WHEN HE DRINKS AND HE EXPRESSES A DESIRE TO CHANGE. HE DENIED ANY THOUGHTS OF SUICIDE OR SELF HARM
[2016-09-11 12:41] VITALS: BP 139/77
--- NOTE | 2016-09-11 15:28 | CPS MD/APRN INITIAL ASSE PSYCH ---
Psychiatric Admission Speaking Unit Assembler's Note Reviewed: Yes Patient Seen and Examined: Yes Identifying Information: Patient is a 35-year old male with a history of depression and alcohol use disorder; he self presented to the ED after reporting self-ingestion of approx #10 tabs of an OTC muscle relaxant and alcohol with non-suicidal intent per his report today. Chief Complaint: "This is a kick in the ass." Reaction to Hospitalization: Agreeable History of Present Illness Onset of Illness: 09/07/16. Patient had an exacerbation of depression, SI and polysubstance abuse in 2010 resulting in inpatient hospitalization in [facility] (see in record). Circumstances Leading to Admission: Alcohol use Discord with significant other Impulsive behavior Problem(s) Justifying Need for Admission: Alleged suicidal ideation and overdose. Other HPI: Patient stated that last 09/07/16, he saw a facebook post of his significant other partying after they had agreed to take a "break" to determine whether they wanted to continue in their relationship. He was upset at this, as he had been taking this "break" seriously. As a result he reported drinking kristi to numb depression which he reported impaired his judgement and resulted in an ingestion of #10 tabs of an OTC muscle relaxant. He stated after he realized what he had done he walked himself to the ED to make sure he was "medically ok." He does not recall if he reported SI then, but stated today that he did not act on behavior in a suicide attempt. Past Psychiatric History Past Diagnosis(es)- if any: Major depression unspecified Past Precipitating Factors- if any: Loss of relationship (similar circumstance led to inpatient [facility] admission in 2010). Polysubstance abuse - Include inpatient and outpatient treatment Treatment History: - [facility] (2010) - per this discharge summary patient was referred to IOP, however, per patient, he never followed up. - Per pt, following 2010 discharge from [facility], he followed up with a provider for anger management. After completing a few session, he stated the provider told him he didn't need to continue tx. - Denied any outpatient psychiatric tx since anger management tx in 2010. History of Suicide Attempts or Gestures Denied Substance Abuse History: Reported weekly alcohol use. Reported drinking variable amounts 2-3 drinks to a 6-pack of "Truly" over the course of a wk. Reported past use of cannabis. None recent. Denied use of illicit substances. Reported daily cigarette use, 1ppd. Allergies: Coded Allergies: No Known Allergies (09/07/16) Home Med List: None - Include any medical condition(s) that may - impact the patient's recovery/remission Past Medical History: Denied Past History Medical History Neurological: NONE EENT: NONE Cardiovascular: NONE Respiratory: NONE Gastrointestinal: NONE Hepatic: NONE Renal: NONE Musculoskeletal: NONE Psychiatric: alcohol dependence, depression, substance abuse (previous 'weed' use) Endocrine: NONE Blood Disorders: NONE Cancer(s): NONE WOOD GANG SAWYER/Reproductive: NONE History of MRSA: No History of VRE: No History of CDIFF: No Isolation History: Standard Surgical History Surgical History: none (Denies) Psychiatric Family/Social Hx Family History Psychiatric Illness: Denied Substance Use: Denied Suicides: Denied Social History Living Situation: Lives alone Significant Relationships (family/friends): 3 sister, 1 brother, and parents Education: Some college Vocation/Occupation: Has worked for 14 years 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 Legal: Denied Healthly Behaviors Screening Tobacco Screening Tobacco Use from ED Docu: Current Daily Use Daily Tobacco Use Amount/Type: => 5 Cigarettes daily - If tobacco counseling indicated - the following topics are required. - #1 Recognizing dangerous situations. - #2 Coping Skills. - #3 Basic information about quitting. Status of Tobacco Cessation Counseling: #1, #2 AND #3 Completed Cessation Med Status: Nicotine Patch Ordered Alcohol Screening - ETOH screen POS if BAL >=80 or Audit-C>= M4/F3 Audit-C Score from Diag Assess: 8 Blood Alcohol Level: Lab Serum Alcohol < 10.0 MG/DL 09/08/16 0049 Alcohol Use Screening Results: Pos per Audit C &/or BAL - If ETOH counseling indicated - the following topics are required. - #1 Express concern about the patient's - drinking at unhealthy levels, include informing - of national norms for moderate drinking: - men <= 14 drinks/week, max 4 drinks/occasion - women <= 7 drinks/week, max 3 drinks/occasion - #2 Providing feedback, including linking alcohol to - negative physical effects (liver injury, hypertension) - negative emotional effects (relationship problems and - depression) - negative occupational consequences (reduced work - performance) - #3 Advising the patient to abstain from alcohol or - to drink below national norms for moderate drinking - (as listed above). Status of ETOH Use Counseling: #1, #2 AND #3 Completed. Metabolic Screening - Screen if on a Neuroleptic Medication - Metabolic screening should include: - Blood Pressure, BMI, Glucose or Hgb A1c, & a - Lipid profile from within the past 365 days. Metabolic Screening ([X]) Not Applicable, patient not on a neuroleptic. OR () Patient on a neuroleptic(s) . Enter below results for Glucose or Hemoglobin A1C, and lipid panel if obtained during the last 365 days. BMI: 30.100 Blood Pressure: 139/77 Laboratory Results (If applicable): N/A Exam and Plan Mental Status Examination Ambulation Status: Steady, independent Appearance: 35 y/o male who appears stated age. Dressed in blue scrubs. Well- groomed. Attitude towards examiner: Cooperative, calm, polite Psychomotor activity: No psychomotor retardation or agitation Behavior: Calm Quality of speech: Normal in rate, tone and volume. Well articulated. Affect: Full-range, non-labile Mood: "I feel ok now." 0/10 Depression 0/10 Anxiety Suicidal Ideation: Denied Homicidal Ideation: Denied Hallucinations: Denied AVH Paranoid/Delusional Material: None evident Difficulties with thought organization: None evident Insight: Fair Judgment: Fair Orientation: x 3 Cognition: Grossly intact Memory Function: Grossly intact Estimate of intellectual functioning: Average Assets/Strengths Patient Identified Assets/Strengths: Supportive family; employed; motivated for tx and AA, and for sobriety. Impression/Plan Impression and Plan: Patient is a 35-year old male with a history of depression and polysubstance abuse, primarily alcohol use at present with past history of cannabis use. He self-presented to ED after acting impulsively in the setting of learning that his significant other was out partying and their relationship was ending. Impulsive behavior resulted in ingestion of alcohol and #10 tabs of OTC muscle relaxant to numb depression. Denied this was a suicide attempt and stated he voluntarily brought himself to ED to get medically checked out after incident. Identified protective factors of his 3 sisters, 1 brother, parents, and job. Concerned that being here will effect his job. At this time denies SI, HI, AVH, and acute symptoms of depresison and anxiety. He is unwilling to trial antidepressant and stated episode was isolated and directly related to substance use. Will monitor patient on unit for safety ,mood and suicidal ideation. Will hold off on starting antidepressant. Will schedule family meeting with patient's family, obtain collateral and likely discharge with referral to IOP Dual track and recommendation to engage in AA. - Include all active medical diagnosis that require tx DSM 5 Diagnosis(es): Unspecified depressive disorder R/O Substance-induced depressive disorder Alcohol use disorder Nicotine use disorder - Initial Tx Plan for Active Psych & Medical Conditions Treatment Plan: 1. Monitor patient for safety, mood and suicidal ideation. 2. Obtain collateral from patient's family/schedule family meeting TK. 3. Consider trial of antidepressant if patient agreeable. 4. One symptoms are clinically stable, refer to Dual IOP level of care and AA. 5. H&P per cosmetics presser team. 6. TSH ordered tomorrow morning as this was not obtained on admission. - Factors that would help patient function - in a less restrictive setting. Factors: Sobriety Dual Diagnosis outpatient tx Alleviation of depression/SI
[2016-09-11 16:15] VITALS: BP 149/82
--- NOTE | 2016-09-11 17:42 | SOCIAL WORKER PROG NOTE PSYCH ---
Social Work Progress Note Progress Note Tereza Wayne APRN and I met with Fredrick. He reported recent distress over an issue with his long time girlfriend. He thought that she wanted space to think further about their relationship and he found out that she was really out "partying". This caused him to drink and then take several muscle relaxers. When he realized what he did, he stated he walked to the ER to make sure he was ok. He reports that his mood was okay up until this incident. He did identify alcohol as a problem for him and states he becomes very "emotional" when he drinks and he needs to stop. He want to go to AA for treatment. He mentioned in the past having some outpatient treatment for "anger management", but feels that is under control at this time. He denies any current SI, HI, AH/VH. He denies any past suicide attempts. 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 He would like his boss to be informed that he is here. He identifies family as his support system. He has a brother and 3 sisters. They live with his parents. He would like his sisters here for a family meeting, but doesn't want to bother his parents. Signed releases for sisters and his boss Tonny Cuellar. I called his sister Meghann Hoskins [phone] and she is only available for a phone conference tomorrow at 11am. She will try to get her sister Arabella on the phone as well. Meghann was tearful on the phone, stating she was very worried about her Brother and that they are all very close. Called Fredrick's boss Tonny at his request just to inform him of his hospitalization. He was apparently already informed on Saturday and hopes to see Fredrick back at work soon.
--- NOTE | 2016-09-11 17:45 | SOCIAL WORKER TX PLAN PSYCH ---
Treatment Plan - Please Document: - Evidence that there is ongoing collaboration between - the patient and the interdisciplinary team, - including the patient's active participation and - responsibility for engaging in the treatment regimen, - and that the treatment plan is individualized and - relevant to the patient's conditions. - Treatment plan should reflect documentation indicating - that all active therapeutic efforts are included. Strengths/Capabilities: seek treatment for his depresssion and alcohol use, came to the emergency room. Physical Limitations (Interventions): None known Patient Identified Trmt Goals: "I want to stop drinking" Discharge Plan: AA and look at outpatient treatment options Problem/Goals #1 Problem #1: depression Goal (Short Term): Patient will explore medicaitons options with the CONSERVATION AGENT Goal (Fpc): Patient will be able to verbalize mood improvement and demonstrate this to staff on unit for discharge. Interventions: patient will be offered medication management with the CONSERVATION AGENT, Groups on symptom management, coping skills, relaxation, goals group, focus group. Furnace Attendant will discuss triggers to recent symptoms. Coordinate family meeting and assist with aftercare planning. Problem/Goals #2 Problem #2: alcohol dependence/abuse Goal (Short Term): patient will identify triggers to use Goal (Fpc): patient will identify the consequences of use and develope a relapse prevention plan Interventions: Groups will be offered on relapse prevention, coping skills, AA. Furnace Attendant will encourage AA meetings outside in the community and discuss supports to maintain stability. DSM5/PS Stressors/Medical Prob Diagnosis' (DSM 5, Stressors, Medical): Major Depressive Unspecified, F32.9 Current GAF: 25 Treatment Team - Responsibilities of members of the treatment team include: - Medication Management- MD or CONSERVATION AGENT - Medication Administration and Monitoring- Nurse - Group Therapy- Occupational Therapist - 1:1 Therapy,Disch Planning,family involvement-Furnace Attendant
[2016-09-11 19:52] VITALS: BP 145/75
--- NOTE | 2016-09-11 22:15 | NUR ---
PT IS CALM, COOPERATIVE WITH STAFF AND PEERS, AND COMPLIANT WITH UNIT RULES. PT IS OFTEN IN [place], INTERACTING WELL WITH OTHERS. MOOD IS STABLE, AFFECT IS EUTHYMIC TO FULL RANGE, COMMUNICATION IS ORGANIZED AND APPEARS NORMAL IN ALL RESPECTS, AND APPETITE IS NORMAL. PT DENIES SI AT THIS TIME.
[2016-09-12 08:03] VITALS: BP 143/80
--- NOTE | 2016-09-12 08:56 | SOCIAL WORKER PROG NOTE PSYCH ---
Social Work Progress Note Progress Note Fredrick was given information to call [id number] for insurance this morning. He was under the impression that the container washer got him insurance. I explained that they got him a temporary authorization to be here, but once here he needs to follow up and apply for insurance. He was disappointed to hear that and felt he was mislead upstairs. Apologized for any misunderstanding that took place. Fredrick called, but it was determined that he was not eligible for insurance through [id number] due to making too much money. Tereza Alcala APRN and I had a phone conference with his sisters Meghann and Arabella. His family feels that this was a 1x incident and they are not worried about this happening again. There were no concerns about him discharging today. They talked about being a close family and that they talk with eachother all the time. Fredrick stated that he felt good about being here. Said initially he was angry, but he feels that the experience has been good for him. Talked about following up with AA. Sister offered to go to a meeting with him. He felt that would be good. Discussed importance of having other therapy for additional support. He was open to outpatient services, but will need someone to work with him on the payment issue while he tries to get insurance. I told him I would follow up with [facility] or our outpatient services. Referral was made to Care. Spoke with Joy in intake. She scheduled him to be seen on 09/21 at 8:30am. Fredrick is aware and said he would be speaking with his boss about the appt. that morning. Also referred to smoking Cessation group.
--- NOTE | 2016-09-12 11:34 | CP SOUTH PROGRESS NOTE PSYCH ---
Psych (Inpt) Progress Note Progress Note Include the following elements, when applicable: Involvement in the active treatment of the patient with behavioral observations of the patient and the patient's response to the treatment. Review of the ongoing treatment process in the context of the treatment plan. Indication of how multi-disciplinary staff members are carrying out the treatment plan. Plans for future interventions and recommendations for revision of the treatment plan. Liaison with other physicians/providers. Progress Note: I discussed this patient's progress to date, current mental status, treatment process in the context of the treatment plan, and discharge planning with staff/ team in the daily morning inpatient team meeting. I also met with the patient myself in individual session. OBJECTIVE: Current Medications Sig/Rachel Start time Last Medication Dose Route Stop Time Status Admin Gabapentin 300 MG TID 09/11 1000 AC 09/12 PO 08 Nicotine 2 MG Q2 HRS NEEDED PRN 09/11 1500 AC 09/11 PO 2025 Nicotine 21 MG DAILY 09/11 1000 AC 09/11 TOP 0834 Vital Signs Date Time Temp Pulse Resp B/P B/P Pulse O2 O2 Flow FiO2 Mean Ox Delivery Rate 09/12 0803 96.2 86 143/80 09/11 1952 97.3 96 145/75 09/11 1615 104 149/82 09/11 1241 94 139/77 ASSESSMENT: Chart, progress notes, VS and medication list were reviewed. Vital signs within normal limits. No ne wlab results today. Phone conference was facilitated with the patient, his sisters Celso , this typewriters functional tester, and Dominga Caban LCSW. The patient's treatment progress to date, level of safety, events leading up to current hospitalization and discharge planning were reviewed and discussed. Both of the patient's sisters were very supportive during conference. They stated that they are close to the patient and would make every effort to support his recovery post-discharge including attending AA meetings with him. Both stated that the event leading to the patient's admission was an isolated event. They denied prior suicide attempts, or of the patient having chronic mood issues. Neither sister expressed safety concerns regarding the patient or surrounding his discharge. Both sisters were in favor of the patient's discharge plan for patient to follow-up with [facility] outpatient services. The patient was also in agreement of plan. See Dominga Caban LCSW's note for additional information on family phone conference. Met with the patient individually on the date of discharge. He presented alert and oriented to person, place, time and situation. Speech was normal in rate, tone and volume. Eye contact was appropriate. Mood was "better, I feel good, more hopeful." Affect was calm and full-range, non-labile. He had no complaints. He reported his sleep and appetite were stable. He reported his energy level as good. He rated his depression a 0/10 (10 being the worst) and anxiety a 2/10 (10 being the worst). He denied feeling hopeless, helpless, worthless and guilty. He denied passive and active suicidal ideation, plans and intent. He denied homicidal ideation. He gave protective factors of his 3 sisters, 1 brother, parents, and job of 14 years. He denied auditory and visual hallucinations, paranoid ideation. There was no evidence of delusions. He was motivated to start AA and to obtain a sponsor for support in sobriety. He was further motivated to follow-up with [facility] for outpatient psychiatric services, and to resume work this week. He reported tolerating medication well and denied untoward medication effects. He reported feeling safe and ready for discharge. PLAN: 1. Discharge to home and self-care. 2. F/u at [facility] on 09/21/16 at 8:30AM for intake appointment. 3. [facility] at 4PM. 4. All discharge prescriptions were printed, reviewed with patient, and provided to patient on discharge. 5. Patient was strongly advised to abstain from all substances, attend daily AA meetings and to obtain a sponsor for support in sobriety. 6. In the event of an emergency, call 911/go to nearest emergency department. Patient verbalized understanding of all instructions.
--- NOTE | 2016-09-12 11:59 | NUR ---
PT IS TENTATIVELY SCHEDULED FOR [place] TODAY [place] [facility] [place] AND DEMONSTRATES IMPROVEMENT IN HIS MOOD AND ABILITY TO FUNCTION. HE DENIES ANY THOUGHTS OF SUICIDE OR SELF HARM. HE IS PLEASANT WITH STAFF AND PEERS. HE IS COMPLIANT WITH HIS MED REGIME AND AGREES TO FOLLOW UP WITH [facility] AND ME RECOMMENDATION. [facility] WORKING ON SECURING APPT FOR PT. PT IS GIVEN EDUCATION R/T MANAGING DEPRESSION AND ON SUICIDE PREVENTION
[2016-09-12 12:42] VITALS: BP 132/77
[2016-09-12] MEDS ORDERED: NICOTINE PATCH1 EAC3 TOP (15:31)
[2016-09-12] MEDS ORDERED: GABAPENTIN300 M2 PO ×2 (15:31→15:35)
--- NOTE | 2016-09-12 15:42 | DISCHARGE SUMMARY REPORT-PSYCH ---
Visit Information Visit Dates/Diagnosis' Admission Date: 09/10/16 Discharge Date: 09/12/16 Reason for Admission: Alcohol and muscle relaxant ingestion without suicidal intent. Psy Discharge Primary Diag: Unspecified depressive disorder Psy Discharge Secondary Diag: R/O Substance-induced depressive disorder; alcohol use disorder; Nicotine use disorder. Hospital Course Significant Lab Findings: CBC, CMP, TSH all resulted within normal limits. Urine toxicology was negative for all substances. Blood alcohol level was < 10.0mg/dl. Course Complications: None. Consultations: Patient was seen for admission history and physical by schedule hanger Dr. Kevon Jain. Please see MD note for additional information. Allergies: Coded Allergies: No Known Allergies (09/07/16) Hospital Course/TX Response: The patient was monitored on the unit for safety, mood and suicidal ideation. He participated in multimodal treatments on the unit. He was monitored on the unit for alcohol withdrawal, but did not show any signs or symptoms of withdrawal. He was started on Gabapentin 300mg TID for anxiety and a Nicoderm CQ 21mg patch for smoking cessation. He was averse to trialing antidepressant medications. During the hospital course, the patient's mood and affect improved. He consistently denied suicidal ideation, and identified that his major problem was with alcohol. He expressed motivation to engage in AA meetings and to obtain a sponsor for support in sobriety. He also was open to a referral to outpatient psychiatric services. A phone conference was held with the patient, his two sisters, Meghann and Arabella , this abstract writer, and Dominga Caban LCSW. The patient's treatment progress to date, level of safety, events leading up to current hospitalization and discharge planning were reviewed and discussed. Both of the patient's sisters were very supportive during conference. They stated that they are close to the patient and would make every effort to support his recovery post-discharge including attending AA meetings with him. Both stated that the event leading to the patient's admission was an isolated event involving alcohol. They did share concern about his problem drinking. They denied prior suicide attempts, or of the patient having chronic mood issues. Neither sister expressed safety concerns regarding the patient or surrounding his discharge. Both sisters were in favor of the patient's discharge plan for him to follow-up with [facility] outpatient services. The patient was also in agreement to plan. On the date of discharge, 09/12/16, he presented alert and oriented to person, place, time and situation. Speech was normal in rate, tone and volume. Eye contact was appropriate. Mood was "better, I feel good, more hopeful." Affect was calm and full-range, non-labile. He had no complaints. He reported his sleep and appetite were stable. He reported his energy level as good. He rated his depression a 0/10 (10 being the worst) and anxiety a 2/10 (10 being the worst). He denied feeling hopeless, helpless, worthless and guilty. He denied passive and active suicidal ideation, plans and intent. He denied homicidal ideation. He gave protective factors of his 3 sisters, 1 brother, parents, and job of 14 years. He denied auditory and visual hallucinations, paranoid ideation. There was no evidence of delusions. He was motivated to start AA and to obtain a sponsor for support in sobriety. He was further motivated to follow-up with [facility] for outpatient psychiatric services, and to resume work this week. He reported tolerating medication well and denied untoward medication effects. He reported feeling safe and ready for discharge. Discharge HBIPS - Tobacco Use Treatment Offered Post DC Medications Offered: Script Given-See Med List Post DC Tobacco Treatment Plan: [facility] Appt Date: 09/19/16 Program Appt Time: 1600 - EtOH/Drug Use D/O Treatment Offered Post DC Medications Offered: Ref Med EtOH/Drug Use D/O Post DC EtOH/SubAbuse TX Plan: Other SubAbuse/Dual Pgm Metabolic Screening - Screen if on a Neuroleptic Medication - Metabolic screening should include: - Blood Pressure, BMI, Glucose or Hgb A1c, & a - Lipid profile from within the past 365 days. Metabolic Screening ([X]) Not Applicable, patient not on a neuroleptic. OR () Patient on a neuroleptic(s) . Enter below results for Glucose or Hemoglobin A1C, and lipid panel if obtained during the last 365 days. BMI: 30.100 Blood Pressure: 132/77 Laboratory Results (If applicable): n/a ] Discharge Instructions General Discharge Information Discharge Medications: Discharge Medications- (Dose, route, freq, indication): START taking these NEW Home Medications: Nicotine (Nicotine Dose: On the skin, DAILY for Qty: 14 Printed Patch) 21 MG/24 HOUR 21 Milligram tobacco cessation Refills: 0 PATCH.[email or web address] Apply 1 patch topically to upper arm QAM and remove before HS. Last Taken:09/12/16 Time:0800 Gabapentin Dose: ORAL, THREE TIMES DAILY Qty: 42 Printed (Gabapentin) 300 MG 300 Milligram for anxiety Refills: 1 CAPSULE Take 1 cap po TID. Last Taken:09/12/16 Time:1500 CONTINUE taking these Home Medications: Multivitamin Dose: ORAL, Every Day for (Multivitamins) 1 EACH 1 Capsule SUPPLEMENT CAPSULE Last Taken: START AT HOME Multiple Neuroleptics: ([X]) Not Applicable OR Document below three failed attempts at monotherapy, or a plan to taper to monotherapy, or augmentation of Clozapine. () Patient's Diet: Regular. Patient's Activity: No restrictions. DC Disposition: Patient to return home and to self-care. Recommendations: Patient was advised to please take his medications as prescribed. He was advised to abstain from all substances, attend AA meetings and to obtain a sponsor for support in sobriety. He was advised to follow-up with post-discharge referrals ( see in below section). He was advised that in the event of an emergency to call 911/go to nearest emergency department. Patient verbalized understanding of all instructions. Referred To: Post Discharge Referrals [facility] Service Date: 09/21/16 [address], [place] [id number] Notes: [facility] Intake appt. 09/21/16 8:30am [address] [place], [place] [phone] OUTPATIENT PSYCHIATRY Service Date: 09/19/16 248/250 SARBJIT Diop [id number] Notes: [facility] 09/19/16 4pm [address], SARBJIT Copies To: [facility]; Smoking Cessation Program
--- NOTE | 2016-10-10 16:19 | IP INCIDENTAL NOTE PSYCH ---
Incidental Note Notation: Patient called unit stating that he ran out of prescribed Gabapentin and that [facility] rescheduled prescriber intake for 10/18/16. Requested refill. Gabapentin 300mg caps, take 1 cap po TID, #30, NR. Called into [facility] in [place], [place] today. Patient to f/u with [facility] prescriber on 10/18/16.
== END 2016-09-12 15:55 | DRG 754 ==
LOC: ERH 23:05 → CP SOUTH 09-10 14:41 → ERHI 09-10 14:41 → EDBEDREQ 09-10 17:23 → ENRESERV 09-10 19:00 → CP SOUTH 09-10 19:24
PROVIDERS: Pediatrics; ADMIT Psychiatry & Neurology Addiction Medicine
DX: F32.9 Major depressive disorder, single episode, unspecified (principal); Z72.89 Other problems related to lifestyle; Z72.0 Tobacco use
CPT/HCPCS: 36415; 80307; G0463; G0480